=== PATIENT | male | born 1955 | race Caucasian/White ===

== ENCOUNTER 2018-10-09 00:27 | Emergency (ER) | payer BC ==
[~2018-10-09] VITALS: Ht 162.6 cm; Wt 68.0 kg
--- NOTE | 2018-10-09 00:27 | NUR ---
0027 - Patient to ER bed 2 to gown for evaluation. Side rails up. Report given to ADRIANA Callaway.
--- NOTE | 2018-10-09 00:30 | NUR ---
0030 - ER at bedside examining patient.
--- NOTE | 2018-10-09 00:31 | NUR ---
Pt came into ED C/O of 3-day Hx of intermittent left-sided chest pain that radiates to his left shoulder. The pain is described as pulsating. The patient further reports headache. Pt also states he also has hx of DMII and HTN. No other injuries and or complaints at this time. VSS, no s/s of acute distress. Resting on gurney with rails up
--- NOTE | 2018-10-09 00:32 | NUR ---
Portable X Ray bedside, well tolerated
[2018-10-09] MEDS: ASPIRIN 81 MG TAB.CHEW PO ONE (00:41)
[2018-10-09 01:22] LABS: HEMATOCRIT 42.1 % (36-54); HEMOGLOBIN 14.2 g/dL (14.0-18.0); MEAN CORPUSCULAR HEMOGLOBIN 31 pg (27-31); MEAN CORPUSCULAR HGB CONC 34 % (32-36); MEAN CORPUSCULAR VOLUME 92 fL (79.0-98.0); PLATELET COUNT (AUTO) 235 K/uL (130-430); RED BLOOD CELL COUNT(AUTO) 4.56 MIL/uL (4.2-6.2); RED CELL DISTRIBUTION WIDTH 13.9 % (9.0-15.0); WHITE BLOOD COUNT (AUTO) 9.4 K/uL (4.8-10.8)
[2018-10-09 01:23] LABS: BASOPHILS # (AUTO) 0.1 K/uL (0.0-0.2); EOSINOPHILS # (AUTO) 1.1 K/uL (0.0-0.4); EOSINOPHILS % (AUTO) 11.2 % (0.0-4.0); LYMPHOCYTES # (AUTO) 3.1 K/uL (1.0-5.5); LYMPHOCYTES % (AUTO) 32.7 % (20.5-51.5); MONOCYTES # (AUTO) 0.8 K/uL (0.0-1.0); MONOCYTES % (AUTO) 8.7 % (1.7-9.3); NEUTROPHILS # (AUTO) 4.4 K/uL (1.8-7.7); NEUTROPHILS % (AUTO) 46.4 % (40.0-70.0)
[2018-10-09 01:31] LABS: ANION GAP 10 (5-15); CALCIUM 9.5 mg/dL (8.4-11.0); CHLORIDE 101 mmol/L (98-107); CREATININE 0.94 mg/dL (0.55-1.30); GLUCOSE 94 mg/dL (70-99); POTASSIUM 3.8 mmol/L (3.5-5.1); SODIUM SERUM 137 mmol/L (136-145); UREA NITROGEN, BLOOD 24 mg/dL (8-21)
[2018-10-09 01:33] LABS: GFR AFRICAN AMERICAN 105 mL/min (>90)
[2018-10-09 01:39] LABS: ALANINE AMINOTRANSFERASE 21 U/L (12-78); ALBUMIN 3.5 g/dL (3.4-4.8); ASPARTATE AMINOTRANSFERASE 19 U/L (10-37); TOTAL BILIRUBIN 0.3 mg/dL (0.0-1.0)
[2018-10-09 02:36] LABS: BILIRUBIN,URINE NEGATIVE (NEGATIVE); BLOOD, URINE NEGATIVE (NEGATIVE); CLARITY/URINE CLEAR (CLEAR); COLOR,URINE YELLOW (YELLOW); GLUCOSE,URINE NEGATIVE (NEGATIVE); KETONES,URINE NEGATIVE (NEGATIVE); LEUKOCYTE ESTERASE ,URINE NEGATIVE (NEGATIVE); NITRITE, URINE NEGATIVE (NEGATIVE); PROTEIN URINE NEGATIVE (NEGATIVE); UROBILINOGEN,URINE 0.2 (0.2-1.0)
--- NOTE | 2018-10-09 03:30 | NUR ---
Lab at bedside for Trop draw #2, well tolerated
[2018-10-09 04:20] VITALS: BP_SYST 127
--- NOTE | 2018-10-09 04:20 | NUR ---
Patient given written and verbal discharge instructions and verbalizes understanding. ER MD discussed with patient the results and treatment provided. Patient in stable condition. ID arm band removed. IV catheter removed intact and dressing applied, no active bleeding. Patient educated on pain management and to follow up with PMD. Pain Scale 0/10 Opportunity for questions provided and answered.
== END 2018-10-09 04:20 | disposition home or self-care (01) ==
LOC: SED 00:27
DX: R07.89 Other chest pain (principal); E11.9 Type 2 diabetes mellitus without complications; I10 Essential (primary) hypertension
CPT/HCPCS: 36415; 71045; 80053; 81003; 84484; 85025; 93005; 99284